=== PATIENT | male | born 1970 | race Caucasian/White ===

== ENCOUNTER 2023-09-13 00:41 | Emergency (ER) | payer OTHER | END 2023-09-13 03:04 | disposition home or self-care (01) | LOC: CSHERS 00:41 → EEVIPCON 00:41 → CSHERS 03:04 | DX: K94.03 Colostomy malfunction (principal); D64.9 Anemia, unspecified; I12.9 Hypertensive chronic kidney disease with stage 1 through stage 4 chronic kidney disease, or unspecified chronic kidney disease; N18.9 Chronic kidney disease, unspecified; B19.20 Unspecified viral hepatitis C without hepatic coma; Z55.6 Problems related to health literacy | CPT/HCPCS: 99282 ==